=== PATIENT | male | born 1970 | race Caucasian/White ===

== ENCOUNTER 2019-09-17 11:26 | Emergency (ER) | payer SELFPAY ==
[2019-09-17 11:44] VITALS: BP 125/89; PULSE 87; RESP 18; TEMP 36.6; O2SAT 96; BMI 25.5
--- NOTE | 2019-09-17 12:47 | PC.NURSE ---
NO REDNESS OR SWELLING NOTED TO HAND STATES GOT ANTIBIOTICS BUT DID NOT FINISH THEM ONCE SWELLING WENT DOWN
--- NOTE | 2019-09-17 13:41 | XR_ITS ---
WS: [id number] XR wrist RT min 3V* 10820 REASON FOR EXAM: cat bite FINDINGS: No destructive changes in the bony structures of the hand or wrist. No swelling or lymphade nopathy near the site of the wrist. XR/XR wrist RT min 3V* [id number] IMPRESSION: Negative right wrist.
--- NOTE | 2019-09-17 13:41 | W.ED.EXTPRO ---
Documented by User: ERNESTO Roca 09/17/19 14:01 HPI - Extremity Problem General: Chief complaint: Extremity Injury, Upper Stated complaint: right hand pain Time Seen by Provider: 09/17/19 13:05 Source: patient Mode of arrival: ambulatory Limitations: no limitations History of Present Illness: HPI Narrative: Patient is a 49-year-old male who presents to ED today at the request of his PCP for complaints of right wrist pain. Patient states approximately 2 to 3 weeks ago he was bit by one of his house cats (UTD on immunizations) to the dorsum of his right hand. Patient states area initially was red and swollen and thus he sought medical attention and got placed on Augmentin and Doxycycline. States he took 3 days worth of antibiotics and area began looking normal so he stopped the antibiotics. States over the past 2 to 3 days he has noticed swelling and pain to his right wrist. There is no redness or warmth. Patient does tell me he recently started a new job where he works with his hands a lot. Also tells me he chronically will have intermittent cramping of his right thumb due to a previous injury. MD Complaint: extremity pain and extremity swelling Onset (ago): day(s) Pain Consistency: constant Location: right Relieving factors: nothing Exacerbating factors: range of motion Associated symptoms: Reports no associated symptoms; Deny fever(s) or rash Review of Systems Const: Denies: fever, chills, body aches, fatigue or malaise Musc: Reports: joint pain (R wrist); Denies: redness, joint warmth, joint stiffness or muscle weakness Skin/Breast: Denies: rash, itching, redness, skin tenderness, skin swelling, new lesion or changes in skin color Neuro: Denies: numbness in extremities, weakness in extremities or changes in sensation [facility] ED PFSH: Social History (Updated 09/17/19 @ 10:58 by Marine Connolly LPN) Smoking and tobacco status: current every day smoker Alcohol intake: current Physical Exam Const: COMMON NORMALS: no apparent distress, average body habitus, oriented x3, no limitations, healthy appearing, alert and well nourished Extremity: COMMON NORMALS: full ROM, normal capillary refill, no joint enlargement and no clubbing, cyanosis or edema OTHER: pt has mild swelling/tenderness to radial wrist proximal to joint itself; there is no redness/warmth; pain worse with ROM; has mild tenderness with ROM of thumb but pt has no [place] signs to suggest infectious tenosynovitis; there is no swelling/redness/warmth to dorsum of hand where cat bite apparently was Neuro: COMMON NORMALS: oriented x3 SENSORIUM/ORIENTATION: Yes alert Course Vital Signs: Vital signs: Vital Signs Temperature 97.9 F 09/17/19 11:44 Pulse Rate 87 09/17/19 11:44 Respiratory Rate 18 09/17/19 11:44 Blood Pressure 125/89 09/17/19 11:44 Pulse Oximetry 96 09/17/19 11:44 MDM - Extremity (Nontraumatic) MDM Narrative: Medical decision making narrative: Patient has no evidence for osteomyelitis, septic arthritis, or other life-threatening conditions at this time. X-ray shows no foreign body or osseous involvement. Case discussed with Dr. Case who agrees that patient is stable for discharge. Imaging Data^: R wrist: Radiologist's impression: [address] [address] XRay Report Signed Patient: Mazin Weber Unit #: [id number] : [id number] Age/Sex: 49 / M ADM Date: 09/17/19 Loc: ER Room/Bed: Attending Dr: Ordering Provider/Ordering MD: Shanita Horton Date of Service: 09/17/19 Procedure(s): XR wrist RT min 3V* 56002 Accession Number(s): [id number] Report Number: [id number] WS: [id number] XR wrist RT min 3V* [id number] REASON FOR EXAM: cat bite FINDINGS: No destructive changes in the bony structures of the hand or wrist. No swelling or lymphadenopathy near the site of the wrist. XR/XR wrist RT min 3V* [id number] IMPRESSION: Negative right wrist. Dictated By: Yogi Urena DO Signed By: Yogi Urena DO Signed Date/Time: 09/17/19 1352 DD/ 1351 Discharge Plan Discharge Patient Disposition: Home, Self-Care Clinical Impression: Acute pain of right wrist Condition: Stable Prescriptions: No Action amoxicillin 875 mg tablet 875 mg PO BID RF: 0 doxycycline hyclate 75 mg tablet 150 mg PO BID RF: 0 Discharge Orders: Discharge Order (Routine); Ordered 09/17/19 Ordered By: Shanita Horton Activity Restrictions/Additional Instructions: As discussed finish both of your antibiotics as prescribed. You may return to the emergency department for worsening pain, redness, swelling, or any other concerns you may have. 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 [place] Fwd Exam Expanded Problem Focused Documented by User: Maliha Case MD 09/17/19 14:04 HPI - Extremity Problem General: Chief complaint: Extremity Injury, Upper Stated complaint: right hand pain Time Seen by Provider: 09/17/19 13:05 [facility] ED PFSH: Social History (Updated 09/17/19 @ 10:58 by Marine Connolly LPN) Smoking and tobacco status: current every day smoker Alcohol intake: current Course Vital Signs: Vital signs: Vital Signs Temperature 97.9 F 09/17/19 11:44 Pulse Rate 87 09/17/19 11:44 Respiratory Rate 18 09/17/19 11:44 Blood Pressure 125/89 09/17/19 11:44 Pulse Oximetry 96 09/17/19 11:44 MDM - Extremity (Nontraumatic) MDM Narrative: Medical decision making narrative: Patient presents here with likely tendinitis. He does have a history of cat bite but the CT shows no signs of osteomyelitis. I discussed this case with midlevel and agree with her history and plan and believe osteomyelitis is very unlikely. Patient is to continue treatment follow-up PCP and return if worsening. Discharge Plan Discharge Patient Disposition: Home, Self-Care Clinical Impression: Acute pain of right wrist Condition: Stable Prescriptions: No Action amoxicillin 875 mg tablet 875 mg PO BID RF: 0 doxycycline hyclate 75 mg tablet 150 mg PO BID RF: 0 Discharge Orders: Discharge Order (Routine); Ordered 09/17/19 Ordered By: Shanita Horton Activity Restrictions/Additional Instructions: As discussed finish both of your antibiotics as prescribed. You may return to the emergency department for worsening pain, redness, swelling, or any other concerns you may have. 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
[2019-09-17 14:08] VITALS: BP 110/76; PULSE 75; RESP 18; TEMP 36.3; O2SAT 99
== END 2019-09-17 14:10 | disposition home or self-care (01) ==
PROVIDERS: Emergency Provider Physician Assistant
DX: M25.531 Pain in right wrist (principal); F17.200 Nicotine dependence, unspecified, uncomplicated
CPT/HCPCS: 73110; 99281; 99282

== ENCOUNTER → 2019-10-05 10:04 | Outpatient (BNVA) | payer SELFPAY | PROVIDERS: Visit Provider Family Medicine | DX: R05 Cough (principal); J01.00 Acute maxillary sinusitis, unspecified; J20.8 Acute bronchitis due to other specified organisms; B96.89 Other specified bacterial agents as the cause of diseases classified elsewhere | CPT/HCPCS: 87804 ==

== ENCOUNTER → 2019-10-15 12:23 | Outpatient (BNVA) | payer SELFPAY | PROVIDERS: Visit Provider Nurse Practitioner Family | DX: R06.02 Shortness of breath (principal) | CPT/HCPCS: 71046 ==

== ENCOUNTER → 2020-08-02 13:44 | Outpatient (BNVA) | payer OTHER, SELFPAY | PROVIDERS: Visit Provider Nurse Practitioner Family | DX: Z20.828 Contact with and (suspected) exposure to other viral communicable diseases (principal) | CPT/HCPCS: 87635 ==

== ENCOUNTER 2020-12-04 11:06 | Emergency (ER) | payer SELFPAY ==
[2020-12-04 11:10] VITALS: BP 121/80; PULSE 82; RESP 18; TEMP 37.1; O2SAT 95; BMI 25.1
--- NOTE | 2020-12-04 11:24 | XRR_ITS ---
PROCEDURE INFORMATION: Exam: XR Chest Exam date and time: 12/04/2020 11:33 AM Age: 50 years old Clinical indication: Cough TECHNIQUE: Imaging protocol: XR of the chest. Views: 1 view. COMPARISON: CR XR chest 2V* [id number] 10/15/2019 12:35 PM FINDINGS: Lungs: Unremarkable. No consolidation. Atelectasis is present in the right lower lobe Pleural spaces: Unremarkable. No pleural effusion. No pneumothorax. Heart/Mediastinum: Unremarkable. No cardiomegaly. Bones/joints: Unremarkable. XR/XR chest 1V portable [id number] IMPRESSION: No acute findings.
[2020-12-04] MEDS: albuterol 8 gm MDI 6 PUFF INHALATION (11:41)
[2020-12-04 11:44] VITALS: PULSE 98; RESP 22; O2SAT 96
[2020-12-04 11:46] VITALS: PULSE 99
--- NOTE | 2020-12-04 11:48 | W.ED.URI ---
HPI - URI/Sore Throat General: Chief Complaint: Upper Respiratory Infection Stated Complaint: CHRONIC COUGHM SWEATING, VOMITING Time Seen by Provider: 12/04/20 11:21 Source: patient and family Mode of arrival: ambulatory Limitations: no limitations History of Present Illness: HPI Narrative: Mazin is a very nice 50-year-old male comes in complaining of cough and shortness of breath. He has a cough productive of green and brown sputum. Symptoms have been present for the past 4 days. He states he does have a history of chronic bronchitis and continues to smoke. He is wheezing. He denies any fever. Denies any chest pain. He states he is having sweats at home and is concerned that he has pneumonia. He denies any exposure to Covid. Has not been around anybody else has been sick. This change in his color of his sputum is different from his baseline. He denies any other complaints or concerns. Associated symptoms: Reports chills and fever(s); Deny abdominal pain, chest pain, diarrhea, ear or mastoid pain, headache(s), nausea or vomiting Review of Systems Const: Reports: fever(s), chills, body aches, fatigue, malaise and diaphoresis Eyes: Denies: change in vision, blurry vision, photophobia, eye discomfort, eye discharge, eye redness or yellow eyes ENMT: Reports: throat pain; Denies: odynophagia, hoarseness, swelling of lips/tongue, ear or mastoid pain, ear discharge, change in hearing or nasal discharge Card: Denies: chest pain, palpitations, irregular heart rhythm, edema, lightheadedness, syncope, pre-syncope, dyspnea on exertion or orthopnea Resp: Reports: dyspnea, productive cough and wheezing; Denies: non-productive cough, hemoptysis or chest congestion GI: Denies: abdominal pain, nausea, vomiting, hematemesis, coffee ground emesis, heartburn, diarrhea, constipation, GI cramping, hematochezia or melena : Denies: flank pain, dysuria, urinary frequency, urinary urgency or hematuria Musc: Denies: neck pain, back pain, extremity pain, extremity swelling, joint pain, joint swelling, joint redness, joint warmth or joint stiffness Skin/Breast: Denies: rash, pruritus, erythema, skin pain or skin tenderness Neuro: Denies: headache(s), numbness in extremities, weakness in extremities, sensory changes, lack of coordination, difficulty walking, dizziness, vertigo, confusion, Slurred speech present or seizure-like activity Chuy/Lymph: Denies: easy bruising, easy bleeding, petechiae, purpura or enlarged lymph nodes All/Imm: Denies: urticaria, throat swelling, tongue swelling, facial swelling or acute wheezing PFSH ED PFSH: Medical History Asthma Cigarette smoker Surgical History History of oral surgery Bilateral TMJ Family History Denies family history of Diabetes COPD (chronic obstructive pulmonary disease) Social History Smoking and tobacco status: current every day smoker Second hand smoke exposure: Yes Smoking risk assessment/counseling performed?: Yes Alcohol intake: current Desire information about alcohol rehabilitation?: No Counseling given: No Desire information about substance/drug rehabilitation?: No Counseling given: No Caregiver/support person: Yes Lives independently: No (Nursing Home) Household members: other Details: Inmates Housing: Other Details: Nursing Home Current occupational status: unemployed Pets and animals: No History of recent travel: No Current gender identity: Male Physical Exam Const: COMMON NORMALS: no acute distress, patient oriented x3, no limitations and alert GENERAL APPEARANCE: cooperative HENMT: COMMON NORMALS: normocephalic, atraumatic, external ears normal, EAC's normal and Normal external nose present HEAD & SCALP: normal to inspection, normocephalic and atraumatic FACE & SINUS: normal facial exam and face symmetric NOSE: Normal external nose present and Normal nares present EXTERNAL EAR: Yes external ears normal EXTERNAL AUDITORY CANAL: EAC's normal MOUTH: Normal oral and palatal mucosa present, lip normal and tongue normal Eye: COMMON NORMALS: Equal, round and reactive pupils present and conjunctivae normal GENERAL EYE: appearance normal, both eyes and all related structures ALIGNMENT: Yes alignment normal PERIORBITAL: periorbital findings normal EYELID: eyelids normal CONJUNCTIVA: Yes conjunctivae normal SCLERA: sclerae normal PUPIL: Yes Equal, round and reactive pupils present Neck/C-Spine: COMMON NORMALS: full ROM, no lymphadenopathy, supple, no meningeal signs and no JVD GENERAL: Yes normal visual inspection and Yes trachea midline Chest: COMMONS NORMALS: normal inspection of the chest and normal palpation of entire chest wall Resp: COMMON NORMALS: normal respiratory effort, No retractions and No use of accessory muscles EFFORT & INSPECTION: Yes able to speak in complete sentences and Yes symmetric chest movement AUSCULTATION: no crackles, no rales, rhonchi and wheezes Cardio: COMMON NORMALS: no JVD, regular rate, regular rhythm, S1 normal heart sound present and S2 normal heart sound present RATE: regular rate RHYTHM: regular rhythm HEART SOUNDS: S1 normal heart sound present, S2 normal heart sound present, no click, no gallops, no murmurs and no rubs GI: COMMON NORMALS: Soft to palpation and No hepatosplenomegaly present PALPATION: Yes Soft to palpation, No Tenderness to palpation present (GI), No Guarding due to palpation present (GI), No Rigid due to palpation, Yes No hepatosplenomegaly present, No Hernia present, No Palpable mass present and No Pulsatile mass present : COMMON NORMALS: Yes no CVA tenderness BLADDER/KIDNEY EXAM: Yes no CVA tenderness Back/Pelvis: COMMON NORMALS: no CVA tenderness, thoracic and lumbar spine normal to inspection, no thoracic nor lumbar tenderness and thoraco-lumbar ROM normal Extremity: COMMON NORMALS: normal to inspection, full ROM, capillary refill normal, no joint enlargement, no clubbing, cyanosis or edema and no calf tenderness Neuro: COMMON NORMALS: patient oriented x3, CN's II-XII intact bilaterally, moves all extremities, no focal motor deficits and no sensory deficits noted SENSORIUM/ORIENTATION: Yes alert MENINGEAL SIGNS: Yes no meningeal signs SPEECH: speech normal Psych: COMMON NORMALS: mental status grossly normal, Normal thought process present, cooperative, normal affect, speech normal and activity/motor behavior normal SPEECH: Yes normal speech THOUGHT PROCESS: Normal thought process present Skin: COMMON NORMALS: no rashes or lesions noted, turgor normal, no jaundice, no petechiae and no mottling GENERAL SKIN EXAM: no rashes or lesions noted and turgor normal Course Vital Signs: Vital signs: Vital Signs Temperature 98.7 F 12/04/20 11:10 Pulse Rate 99 12/04/20 11:46 Respiratory Rate 22 H 12/04/20 11:44 Blood Pressure 121/80 12/04/20 11:10 Pulse Oximetry 96 05/09/21 11:44 MDM - URI/Sore Throat Lab Data: Labs: Lab Results 12/04/20 Range/Units 11:58 SARS-CoV-2 Ag (Rap id) Negative (Negative) Imaging Data^: CXR: My impression: Probable right middle lobe infiltrate Discharge Plan Discharge Patient Disposition: Home Clinical Impression: Pneumonia Qualifiers: Pneumonia type: due to unspecified organism Laterality: right Lung location: upper lobe of lung Qualified Code(s): J18.9 - Pneumonia, unspecified organism Condition: Stable Prescriptions: New doxycycline hyclate 100 mg capsule 100 mg PO BID 10 Days Qty: 20 RF: 0 cefdinir 300 mg capsule 300 mg PO Q12H 10 Days Qty: 20 RF: 0 benzonatate [Tessalon Perles] 100 mg capsule 200 mg PO TID PRN (Reason: cough) Qty: 60 RF: 0 No Action buspirone 10 mg tablet 10 mg PO TID PRN (Reason: anxiety) Qty: 90 RF: 2 Aspir-81 81 mg Tablet,Delayed Release (Dr/Ec) 81 mg PO PRN RF: 0 Mucinex Fast-Max Chest-Congest 100 mg/5 mL Liquid 100 - 200 mg PO PRN RF: 0 Emergen-C 1,000 mg Powder Effervescent In Packet 1 ea PO PRN RF: 0 Discharge Orders: Discharge ED (Routine); Ordered 12/04/20 Ordered By: Philomena Herndon Referrals: Dot Johnston DO [Physician] - 4-7 days Discharge Diet: Usual diet Discharge Activity: Limit activity as instructed Patient Instructions: Bacterial Pneumonia (ED), Opioid Safety Activity Restrictions/Additional Instructions: Please return to the ER immediately for any of the signs or symptoms listed on your discharge instruction sheets, worsening/changing of your symptoms, you are not getting better as quickly as expected, or for ANY other cause or concerns. Return to the ER for worsening cough, increased shortness of breath, fever, vomiting, or for any other cause for concern. 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
[2020-12-04] MEDS: predniSONE 20 mg Tablet 60 MG PO (11:52)
[2020-12-04 12:31] LABS: SARS Covid-2 Antigen Negative (Negative)
[2020-12-04 14:18] VITALS: BP 121/74; PULSE 99; RESP 20; TEMP 36.6; O2SAT 99
[2020-12-04 14:20] VITALS: BP 121/74; PULSE 80; RESP 20; TEMP 36.6; O2SAT 99
== END 2020-12-04 14:21 | disposition home or self-care (01) ==
PROVIDERS: Emergency Provider Emergency Medicine
DX: J18.9 Pneumonia, unspecified organism (principal); Z79.82 Long term (current) use of aspirin; F17.210 Nicotine dependence, cigarettes, uncomplicated
CPT/HCPCS: 71045; 87426; 94640; 99283; J3535; J7512

== ENCOUNTER → 2022-05-09 16:22 | Outpatient (BNVA) | payer SELFPAY | PROVIDERS: Visit Provider Nurse Practitioner Family | DX: J45.901 Unspecified asthma with (acute) exacerbation (principal); R05.9 Cough, unspecified | CPT/HCPCS: 71046 ==

== ENCOUNTER → 2022-05-10 11:12 | Outpatient (BNVA) | payer SELFPAY | PROVIDERS: Visit Provider Nurse Practitioner Family | DX: J45.901 Unspecified asthma with (acute) exacerbation (principal); F41.9 Anxiety disorder, unspecified; F32.9 Major depressive disorder, single episode, unspecified; F17.210 Nicotine dependence, cigarettes, uncomplicated; Z13.220 Encounter for screening for lipoid disorders; R05.9 Cough, unspecified; Z12.5 Encounter for screening for malignant neoplasm of prostate; J06.9 Acute upper respiratory infection, unspecified; J30.2 Other seasonal allergic rhinitis | CPT/HCPCS: 80053; 80061; G0103 ==